=== PATIENT | female | born 1960 | race African-American/Black ===

== ENCOUNTER 2016-04-26 18:00 | Observation (INO) | payer BC, OTHER ==
[~2016-04-26] VITALS: Ht 170.2 cm; Wt 140.0 kg
[~2016-04-26 18:00] MED LIST: ATEN1TAB71 PO; ETOD400T PO
[2016-04-26 18:02] VITALS: BP 195/98; PULSE 112; RESP 16; TEMP 98.4; O2SAT 99
--- NOTE | 2016-04-26 21:26 | PD ---
HPI Chief Complaint: Respiratory Symptoms Time Seen by Provider: 21:17 Travel History International Travel<30 days: No Contact w/Intl Traveler<30days: No Traveled to known affect area: No History of Present Illness HPI 56-year-old female with history of hypertension here for evaluation of feeling tired. She tells me that she has a tired feeling in her chest which is worse with ambulation. She is also complaining of some epigastric abdominal discomfort. No fevers or chills. Mild nausea but no vomiting. No history of DVT or PE. No known history of cardiac disease. She is a nonsmoker. [facility] Past Medical History Diminished Hearing: No Hypertension: Yes Reproductive: Yes (FIBROIDS) ?: Not LMP: 5 YRS AGO Tubal Ligation: Yes Social History Alcohol Use: No Tobacco Use: No Substance Use: No Allergies-Medications (Allergen,Severity, Reaction): Coded Allergies: Soma (Verified Allergy, Mild, MOUTH SORES, 04/26/16) Reported Meds & Prescriptions Reported Meds & Active Scripts Active Reported [Blood Pressure Meds] Review of Systems Except as stated in HPI: all other systems reviewed are Neg Physical Exam Narrative GENERAL: Well-developed, well-nourished, comfortable, no acute distress. SKIN: Warm and dry. No rash. HEAD: Atraumatic. Normocephalic. EYES: Pupils equal and round. No scleral icterus. No injection or drainage. ENT: Mucous membranes pink and moist. NECK: Trachea midline. No JVD. CARDIOVASCULAR: Regular rate and rhythm. RESPIRATORY: No accessory muscle use. Clear to auscultation. Breath sounds equal bilaterally. GASTROINTESTINAL: Abdomen soft, nondistended. Mild epigastric tenderness without peritoneal signs. Rest of abdomen is soft and nontender. Normal bowel sounds. MUSCULOSKELETAL: No obvious deformities. No clubbing. No cyanosis. No edema. NEUROLOGICAL: Awake and alert. No obvious cranial nerve deficits. Motor grossly within normal limits. Normal speech. PSYCHIATRIC: Appropriate mood and affect; insight and judgment normal. Data Data Last Documented VS Vital Signs Date Time Temp Pulse Resp B/P Pulse Ox O2 Delivery O2 Flow Rate FiO2 04/26/16 22:30 97 Room Air 04/26/16 21:40 80 16 168/82 04/26/16 18:02 98.4 Orders Electrocardiogram (04/26/16 21:20) B-Type Natriuretic Peptide (04/26/16 21:20) Ckmb (Isoenzyme) Profile (04/26/16 21:20) Complete Blood Count With Diff (04/26/16 21:20) Comprehensive Metabolic Panel (04/26/16 21:20) Magnesium (Mg) (04/26/16 21:20) Prothrombin Time / Inr (Pt) (04/26/16 21:20) Act Partial Throm Time (Ptt) (04/26/16 21:20) Troponin I (04/26/16 21:20) Lipase (04/26/16 21:20) Chest, Single Ap (04/26/16 21:20) Ecg Monitoring (04/26/16 21:20) Bilateral Bp Monitoring (04/26/16 21:20) Iv Access Insert/Monitor (04/26/16 21:20) Oximetry (04/26/16 21:20) Oxygen Administration (04/26/16 21:20) Aspirin Chew (Aspirin Chew) (04/26/16 21:30) Sodium Chloride 0.9% Flush (Ns Flush) (04/26/16 21:30) Influenzae A/B Antigen (04/26/16 21:21) Electrocardiogram (04/26/16 ) CKMB (04/26/16 21:30) CKMB% (04/26/16 21:30) Us Abdomen Gallbladder (04/26/16 ) Potassium Chloride (Kcl) (04/26/16 23:15) Labs Laboratory Tests Test 04/26/16 21:30 White Blood Count 11.0 TH/MM3 Red Blood Count 4.87 MIL/MM3 Hemoglobin 13.1 GM/DL Hematocrit 40.2 % Mean Corpuscular Volume 82.6 FL Mean Corpuscular Hemoglobin 26.9 PG Mean Corpuscular Hemoglobin 32.5 % Concent Red Cell Distribution Width 14.3 % Platelet Count 383 TH/MM3 Mean Platelet Volume 8.3 FL Neutrophils (%) (Auto) 62.5 % Lymphocytes (%) (Auto) 30.4 % Monocytes (%) (Auto) 5.3 % Eosinophils (%) (Auto) 1.0 % Basophils (%) (Auto) 0.8 % Neutrophils # (Auto) 6.9 TH/MM3 Lymphocytes # (Auto) 3.3 TH/MM3 Monocytes # (Auto) 0.6 TH/MM3 Eosinophils # (Auto) 0.1 TH/MM3 Basophils # (Auto) 0.1 TH/MM3 CBC Comment DIFF FINAL Differential Comment Prothrombin Time 10.6 SEC Prothromb Time International 1.0 RATIO Ratio Activated Partial 27.5 SEC Thromboplast Time Sodium Level 138 MEQ/L Potassium Level 3.2 MEQ/L Chloride Level 101 MEQ/L Carbon Dioxide Level 25.7 MEQ/L Anion Gap 11 MEQ/L Blood Urea Nitrogen 11 MG/DL Creatinine 0.95 MG/DL Estimat Glomerular Filtration 73 ML/MIN Rate Random Glucose 105 MG/DL Calcium Level 8.6 MG/DL Magnesium Level 2.0 MG/DL Total Bilirubin 0.4 MG/DL Aspartate Amino Transf 9 U/L (AST/SGOT) Alanine Aminotransferase 16 U/L (ALT/SGPT) Alkaline Phosphatase 80 U/L Total Creatine Kinase 141 U/L Creatine Kinase MB 0.5 NG/ML Troponin I LESS THAN 0.02 NG/ML B-Type Natriuretic Peptide 9 PG/ML Total Protein 8.5 GM/DL Albumin 3.7 GM/DL Lipase 108 U/L [facility] Medical Decision Making Medical Screen Exam Complete: Yes Emergency Medical Condition: Yes Interpretation(s) EKG: Sinus, rate 79, normal axis, normal intervals, no acute ischemic abnormality. Differential Diagnosis Cardiopulmonary disease, ACS, pneumothorax, PE, pericarditis, pneumonia, viral illness, pancreatitis, hepatobiliary disease, gastritis, peptic ulcer disease Narrative Course Vital signs show heart rate 80, blood pressure 168/82, pulse ox 100% on room air , oral temp of 98.4F. CBC is unremarkable. CMP is remarkable for potassium 3.2, otherwise unremarkable. BNP is 9. Lipase is 108. Cardiac enzymes are negative. Patient was made aware of all findings. She is still complaining of right upper quadrant, epigastric, and substernal chest discomfort. She is mildly tender in the right upper quadrant. No peritoneal signs. Right upper quadrant ultrasound will be performed to rule out cholecystitis. Right upper quadrant ultrasound: CONCLUSION: Some areas obscured due to patient body habitus. No acute findings identified. Patient was made aware of all findings. She is still complaining of some substernal discomfort. She will be admitted to the chest pain center for further cardiac evaluation. She is amenable to this plan. Diagnosis Primary Impression: Chest pain Qualified Code: R07.9 - Chest pain, unspecified type Admitting Information Admitting Physician Requests: Letitia ThomsonRaman N MD Apr 26, 2016 21:26
[2016-04-26] MEDS ORDERED: SODIUM CHLORIDE 0.9% FLUSH 5 ML FLUSH IVF PRN (21:30)
[2016-04-26] MEDS ORDERED: ASPIRIN 81 MG CHEW TAB PO ONE (21:30)
[2016-04-26 21:40] VITALS: BP 168/82; PULSE 80; RESP 16; O2SAT 100
[2016-04-26 21:50] LABS: AUTOMATED NEUTROPHIL # 6.9 TH/MM3 (1.8-7.7); BASOPHIL # 0.1 TH/MM3 (0-0.2); BASOPHIL % 0.8 % (0.0-2.0); EOSINOPHIL # 0.1 TH/MM3 (0-0.4); HEMATOCRIT 40.2 % (35.0-46.0); HEMO FLAGS DIFF FINAL; LYMPH % 30.4 % (9.0-44.0); LYMPHOCYTE # 3.3 TH/MM3 (1.0-4.8); MEAN CELL VOLUME 82.6 FL (80.0-100.0); MEAN CORPUSCULAR HEMOGLOBIN 26.9 PG (27.0-34.0); MEAN CORPUSCULAR HGB CONC 32.5 % (32.0-36.0); MONO % 5.3 % (0.0-8.0); NEUT % 62.5 % (16.0-70.0); PLATELET COUNT 383 TH/MM3 (150-450); RED BLOOD COUNT 4.87 MIL/MM3 (4.00-5.30); RED CELL DISTRIBUTION WIDTH 14.3 % (11.6-17.2)
--- NOTE | 2016-04-26 21:54 | RADRPT ---
EXAM DATE/TIME: 04/26/2016 21:26 [facility] COMPARISON: No previous studies available for comparison. INDICATIONS : Chest pain. MEDICAL HISTORY : None. SURGICAL HISTORY : None. ENCOUNTER: Initial ACUITY: 1 day PAIN SCORE: 5/10 LOCATION: Bilateral chest FINDINGS: A single view of the chest demonstrates the lungs to be symmetrically aerated without evidence of mas s, infiltrate or effusion. The cardiomediastinal contours are unremarkable. Osseous structures are intact. CONCLUSION: No acute disease. Howie Holley MD on April 26, 2016 at 21:53 Board Certified Radiologist. This report was verified electronically.
[2016-04-26 22:01] LABS: APTT (PATIENT) 27.5 SEC (24.3-30.1); PROTHROMBIN TIME - PATIENT 10.6 SEC (9.8-11.6)
[2016-04-26 22:09] LABS: ANION GAP 11 MEQ/L (5-15); AST (GOT) 9 U/L (15-37); BICARBONATE 25.7 MEQ/L (21.0-32.0); BLOOD UREA NITROGEN 11 MG/DL (7-18); CHLORIDE 101 MEQ/L (98-107); GLOMERULAR FILTRATION RATE 73 ML/MIN (>89); POTASSIUM 3.2 MEQ/L (3.5-5.1); SODIUM (NA) 138 MEQ/L (136-145)
[2016-04-26 22:14] LABS: ALKALINE PHOSPHATASE 80 U/L (45-117); ALT (GPT) 16 U/L (10-53); CREATINE KINASE 141 U/L (26-192); TOTAL BILIRUBIN ADULT 0.4 MG/DL (0.2-1.0)
[2016-04-26 22:26] LABS: CKMB 0.5 NG/ML (0.5-3.6)
[2016-04-26 22:30] VITALS: O2SAT 97
[2016-04-26] MEDS ORDERED: BLOOD PRESSURE MEDS (22:34)
[2016-04-26] MEDS ORDERED: POTASSIUM CHLORIDE 20 MEQ CONTROLLED RELEASE TAB PO ONE (23:15)
--- NOTE | 2016-04-26 23:51 | RADRPT ---
EXAM DATE/TIME: 04/26/2016 23:15 [facility] COMPARISON: No previous studies available for comparison. INDICATIONS : Right upper quandrant pain. MEDICAL HISTORY : Hypertension. Fibroids. SURGICAL HISTORY : Tubal ligation. ENCOUNTER: Initial ACUITY: 1 week PAIN SCORE: 6/10 LOCATION: Right upper quadrant MEASUREMENTS: LIVER: 15.6 cm length COMMON DUCT: 5 mm RIGHT KIDNEY: 10.7 x 4.9 x 5.4 cm FINDINGS: Some areas of the abdomen are obscured due to patient body habitus. LIVER: Normal echotexture without focal lesion or ductal dilatation. COMMON DUCT: No intraluminal mass or stone visualized. GALLBLADDER: Contains no stones, demonstrates no wall thickening or pericholecystic fluid. PANCREAS: The visualized portions are within normal limits. RIGHT KIDNEY: No evidence of hydronephrosis, stone, or mass. CONCLUSION: Some areas obscured due to patient body habitus. No acute findings identified. Seven Chatterjee MD on April 26, 2016 at 23:48 Board Certified Radiologist. This report was verified electronically.
[2016-04-27] VITALS (7 sets, daily range): BP systolic 114–139; BP diastolic 59–77; PULSE 71–77; RESP 16–20; TEMP 98–98.5; O2SAT 97–99
[2016-04-27] MEDS ORDERED: SODIUM CHLORIDE 0.9% FLUSH 5 ML FLUSH IVF PRN (00:15)
[2016-04-27] MEDS ORDERED: LOSA50TA2 PO (01:08)
[2016-04-27 01:44] LABS: CREATINE KINASE 122 U/L (26-192)
[2016-04-27 01:56] LABS: CKMB LESS THAN 0.5 NG/ML (0.5-3.6)
[2016-04-27 03:57] LABS: CREATINE KINASE 120 U/L (26-192)
[2016-04-27 04:09] LABS: CKMB LESS THAN 0.5 NG/ML (0.5-3.6)
--- NOTE | 2016-04-27 07:34 | HHI.HP ---
[facility] Primary Care Physician Manda Billy MD Chief Complaint Chest pain History of Present Illness This is a 56-year-old female that presents to the ED with a primary complaint of feeling tired over the last week. She states she's had really not much energy. She at times gets a little dizzy. Then yesterday she developed a discomfort in the center of her chest. When asked to describe it she states " it just hurt." It would last for a couple minutes but would continue to recur several times throughout the day. She had no associated shortness breath, nausea, or diaphoresis. She's not had this type of discomfort in the past. She cannot recall prior cardiac workup. Denies recent illnesses. Denies fevers or chills. States there is nothing that brings on the discomfort, nothing improves it, and nothing worsens it. The discomfort does not radiate. Review of Systems General: Patient denies fevers, chills recent, and recent travel HEENT: Patient denies headache, sore throat, difficulty swallowing. Cardiovascular: Has the chest discomfort as mentioned above. Denies sensation of heart beating rapidly or irregularly. No syncope. Denies diaphoresis Respiratory: Denies shortness of breath or inspirational chest discomfort. Denies coughing wheezing or hemoptysis. GI: Patient denies nausea, vomiting, diarrhea, abdominal pain, bloody stools. Musculoskeletal: Patient denies joint pain or edema. Denies calf pain or edema. Neurovascular: Patient denies numbness, tingling, weakness in extremities. Denies headache. Endocrine: Denies polyuria and polydipsia. Hematologic: Denies easy bruising. Skin: Denies rash or itching. Past Family Social History Allergies: Coded Allergies: Soma (Verified Allergy, Mild, MOUTH SORES, 04/26/16) Past Medical History Hypertension. Obesity. Denies hyperlipidemia, thyroid disorder, diabetes, and CAD. Past Surgical History Tubal ligation Reported Medications Reported Meds & Active Scripts Active Reported Losartan-Hydrochlorothiazide 50-12.5 Mg Tab 1 Tab PO DAILY Active Ordered Medications Current Medications Medications (Trade) Dose Ordered Sig/Hammad Route Start Time Stop Time Status Last Admin (NS Flush) 2 ml UNSCH PRN IVF 04/26/16 21:30 (NS Flush) 2 ml UNSCH PRN IVF 04/27/16 00:15 (NS Flush) 2 ml BID IVF 04/27/16 09:00 Non-Formulary Medication 1 tab DAILY PO 04/27/16 09:00 UNV Family History Denies family history of CAD. Social History Patient is a lifetime nonsmoker. She denies alcohol and also denies illicit drugs. She is . Physical Exam Vital Signs Vital Signs Date Time Temp Pulse Resp B/P Pulse Ox O2 Delivery O2 Flow Rate FiO2 04/27/16 03:36 98.0 74 20 123/77 97 04/27/16 02:18 77 04/27/16 01:35 98.0 71 20 139/67 99 04/27/16 01:00 72 16 135/71 99 Room Air 04/26/16 22:30 97 Room Air 04/26/16 21:40 80 16 168/82 100 Room Air 04/26/16 18:02 98.4 112 16 195/98 99 Room Air Physical Exam GENERAL: This is a well-nourished, well-developed patient, in no apparent distress. Patient speaks in clear complete sentences. Patient is pleasant. Patient is obese at 140 kg. Her is at the bedside. HEENT: Head is atraumatic and normocephalic. Neck is supple without lymphadenopathy and trachea is midline. No JVD or carotid bruits. CARDIOVASCULAR: Regular rate and rhythm without murmurs, gallops, or rubs. RESPIRATORY: Clear to auscultation. Breath sounds equal bilaterally. No wheezes , rales, or rhonchi. Chest wall is tender however she states it is not the same discomfort that she was having. No use of accessory muscles. GASTROINTESTINAL: Abdomen is nontender, nondistended. Abdomen soft. No obvious pulsatile mass or bruit. No CVA tenderness. Strong femoral pulses bilaterally. Normal bowel sounds in all quadrants. MUSCULOSKELETAL: Patient is moving upper and lower extremities freely. No calf tenderness or edema, no Homans sign. Strong pulses in upper and lower extremities. NEUROLOGICAL: Patient is alert and oriented. Cranial nerves 2-12 are grossly intact. No focal deficits and speech is clear. SKIN: No rash and turgor is normal. Laboratory Laboratory Tests Test 04/26/16 04/27/16 04/27/16 21:30 00:55 03:10 White Blood Count 11.0 Red Blood Count 4.87 Hemoglobin 13.1 Hematocrit 40.2 Mean Corpuscular Volume 82.6 Mean Corpuscular Hemoglobin 26.9 Mean Corpuscular Hemoglobin 32.5 Concent Red Cell Distribution Width 14.3 Platelet Count 383 Mean Platelet Volume 8.3 Neutrophils (%) (Auto) 62.5 Lymphocytes (%) (Auto) 30.4 Monocytes (%) (Auto) 5.3 Eosinophils (%) (Auto) 1.0 Basophils (%) (Auto) 0.8 Neutrophils # (Auto) 6.9 Lymphocytes # (Auto) 3.3 Monocytes # (Auto) 0.6 Eosinophils # (Auto) 0.1 Basophils # (Auto) 0.1 CBC Comment DIFF FINAL Differential Comment Prothrombin Time 10.6 Prothromb Time International 1.0 Ratio Activated Partial 27.5 Thromboplast Time Sodium Level 138 Potassium Level 3.2 Chloride Level 101 Carbon Dioxide Level 25.7 Anion Gap 11 Blood Urea Nitrogen 11 Creatinine 0.95 Estimat Glomerular Filtration 73 Rate Random Glucose 105 Calcium Level 8.6 Magnesium Level 2.0 Total Bilirubin 0.4 Aspartate Amino Transf 9 (AST/SGOT) Alanine Aminotransferase 16 (ALT/SGPT) Alkaline Phosphatase 80 Total Creatine Kinase 141 122 120 Creatine Kinase MB 0.5 LESS THAN 0.5 LESS THAN 0.5 Troponin I LESS THAN 0.02 LESS THAN 0.02 LESS THAN 0.02 B-Type Natriuretic Peptide 9 Total Protein 8.5 Albumin 3.7 Lipase 108 Date/Time Procedure Status Source Growth 04/26/16 21:30 Influenza Types A,B Antigen (CELESTE) - Final Complete Nasal Washing NEGATIVE FOR FLU A AND B ANTIGEN.... Result Diagram: 04/26/16212904/26/162129 Imaging Last 24 hours Impressions Chest X-Ray 04/26/162119 Signed Impressions: Service Date/Time: Tuesday, April 26, 2016 21:26 - CONCLUSION: No acute disease. Howie Holley MD Course EKGs have sinus rhythm without significant ST segment depressions or elevations. Assessment and Plan Assessment and Plan * Chest pain: Patient has had serial cardiac enzymes and EKGs for ruling out purposes. She will be seen by Dr. Guerrero cardiology in the chest pain center. States she cannot walk on a treadmill. Subsequent she will have a Lexiscan myocardial perfusion stress test. She would be discharged if her stress test were to be nonischemic with instructions to follow-up with her primary care physician Dr. Billy.\\ * Hypertension: Continue current medication. * Hypokalemia: Patient was given potassium supplementation. * Obesity: Patient has been counseled on the importance of diet and exercise. Hector Cassidy Apr 27, 2016 07:34
[2016-04-27] MEDS ORDERED: ONDANSETRON HCL 4 MG/2 ML VIAL IV PUSH PRN (08:15)
[2016-04-27] MEDS ORDERED: HYDROCHLOROTHIAZIDE 12.5 MG CAP PO SCH (09:00)
[2016-04-27] MEDS ORDERED: NON-FORMULARY DRUG (Losartan-Hydrochlorothiazide 1 TAB) PO SCH (09:00)
[2016-04-27] MEDS ORDERED: LOSARTAN 50 MG TAB PO SCH (09:00)
[2016-04-27] MEDS ORDERED: SODIUM CHLORIDE 0.9% FLUSH 5 ML FLUSH IVF SCH (09:00)
[2016-04-27] MEDS ORDERED: REGADENOSON INJ 0.4 MG/5 ML SYR ONE (09:41)
--- NOTE | 2016-04-27 11:11 | RADRPT ---
EXAM DATE/TIME: 04/27/2016 09:04 [facility] COMPARISON: No previous studies available for comparison. INDICATIONS : Chest pain for 1 day. Tired and weak feeling. Angina. DOSE: 34.7 mCi Tc99m Myoview at stress. 11.0 mCi Tc99m Myoview at rest. 0.4 mg Lexiscan STRESS SYMPTOMS: None. EJECTION FRACTION: > 70% MEDICAL HISTORY : Hypertension. SURGICAL HISTORY : Tubal ligation. ENCOUNTER: Initial ACUITY: 3 days PAIN SCALE: 3/10 LOCATION: Bilateral chest TECHNIQUE: The patient underwent pharmacologic stress with infusion of prescribed dose. Continuous ECG tracing was monitored during stress. Gated SPECT imaging was performed after stress and conventional SPECT i maging was performed at rest. The examination was performed on a SPECT/CT scanner, both attenuation and non-corrected datasets were reviewed. FINDINGS: DISTRIBUTION: The maximum perfused segment at stress is in the inferior wall. PERFUSION STUDY: The pattern of perfusion at stress is within normal limits. GATED STUDY: There is intact wall motion and thickening without hypokinetic or dyskinetic segments. CONCLUSION: No areas of ischemia are seen. RISK CATEGORY: Low (<1% Annual Mortality Rate) Kole Rivers MD on April 27, 2016 at 11:08 Board Certified Radiologist. This report was verified electronically.
--- NOTE | 2016-04-27 11:23 | HHI.DCPOC ---
Discharge Care Plan Diagnosis: (1) Chest pain, atypical (2) Hypertension (3) Obesity Goals to Promote Your Health * To prevent worsening of your condition and complications * To maintain your health at the optimal level Directions to Meet Your Goals Take your medications as prescribed Follow your dietary instruction Follow activity as directed Keep your appointments as scheduled Take your immunizations and boosters as scheduled If your symptoms worsen call your PCP, if no PCP go to Urgent Care Center or Emergency Room Smoking is Dangerous to Your Health. Avoid second hand smoke Call the 24-hour hour crisis hotline for domestic abuse at Hector Cassidy Apr 27, 2016 11:23
--- NOTE | 2016-04-27 21:05 | TR ---
Date Performed: 04/27/2016 Time Performed: 09:44:20 DOCTOR: Iris Guerrero DRUG LIST: CLINICAL HISTORY: REASON FOR TEST: Angina REASON FOR ENDING: OBSERVATION: CONCLUSION: Lexiscan stress test was performed under standard four minute protocol. Radionuclid e was injected one minute prior to ending the test. No electrocardiographic abormalities were present to suggest ischemia. Nuclear imaging and interpretation are pending. COMMENTS:
--- NOTE | 2016-04-27 21:13 | EKG ---
Date Performed: 04/27/2016 Time Performed: 03:39:05 PTAGE: 56 years EKG: Sinus rhythm NORMAL ECG Since PREVIOUS TRACING , no significant change noted PREVIOUS TRACIN04/26/2016 22.54 DOCTOR: Iris Guerrero Interpretating Date/Time 04/27/2016 21:11:53
--- NOTE | 2016-04-27 21:14 | EKG ---
Date Performed: 04/26/2016 Time Performed: 22:54:26 PTAGE: 56 years EKG: Sinus rhythm NORMAL ECG Since PREVIOUS TRACING , no significant change noted PREVIOUS TRACIN04/26/2016 19.55 DOCTOR: Iris Guerrero Interpretating Date/Time 04/27/2016 21:13:23
--- NOTE | 2016-04-27 21:17 | EKG ---
Date Performed: 04/26/2016 Time Performed: 19:55:22 PTAGE: 56 years EKG: Sinus rhythm NORMAL ECG NO PREVIOUS TRACING DOCTOR: Iris Guerrero Interpretating Date/Time 04/27/2016 21:17:13
== END 2016-04-27 13:30 | disposition home or self-care (01) ==
LOC: NEPA 18:00 → NEDA 04-27 00:10 → NEPGCP 04-27 01:34
PROVIDERS: ADMIT Internal Medicine Interventional Cardiology; ATTEND Internal Medicine Interventional Cardiology
DX: R07.89 Other chest pain (principal); I10 Essential (primary) hypertension; Z88.8 Allergy status to other drugs, medicaments and biological substances; E66.9 Obesity, unspecified; E87.6 Hypokalemia; Z68.42 Body mass index [BMI] 45.0-49.9, adult
CPT/HCPCS: 71010; 76705; 78452; 80053; 82550; 82552; 83690; 83735; 83880; 84484; 85025; 85610; 85730; 87804; 93005; 93017; 99285; A9502; G0378; J2405; J2785